=== PATIENT | female | born 1975 | race African-American/Black ===

== ENCOUNTER 2017-12-25 17:12 | Emergency (ER) | payer OTHER ==
[~2017-12-25] VITALS: Ht 157.5 cm; Wt 113.4 kg
[~2017-12-25 17:12] MED LIST: CARAFATE; CIPRO500 MG/5 M PO; FIBER; FLAGYL500 MG PO; NORCO 10MG-325MG1 EA PO; NORVASC5 MG PO; PANTOPRAZOLE SO40 MG PO; PHENERGAN; PROBIOTIC; Z.0.NORCO 10-325 T1 PO
[2017-12-25] MEDS ORDERED: DEXAMETHASONE SOD PHOS 10 MG/1 ML VIAL INJ ONE (18:15)
[2017-12-25] MEDS ORDERED: BUPIVACAINE HCL 0.25% 10ML MPF VIAL INJ ONE (18:15)
[2017-12-25 18:20] VITALS: BP 122/92
== END 2017-12-25 18:20 | disposition home or self-care (01) ==
LOC: FSED 17:12
DX: R07.89 Other chest pain (principal); M25.512 Pain in left shoulder; S29.012A Strain of muscle and tendon of back wall of thorax, initial encounter; I10 Essential (primary) hypertension; Z87.19 Personal history of other diseases of the digestive system
CPT/HCPCS: 99282; J1100

== ENCOUNTER 2024-12-29 04:13 | Emergency (ER) | payer OTHER ==
[~2024-12-29] VITALS: Ht 157.5 cm; Wt 102.1 kg
[2024-12-29 04:15] VITALS: TEMP 98.2
[2024-12-29] MEDS: SODIUM CHLORIDE 0.9% 1000ML 1,000 ML IV ONE (04:59)
[2024-12-29] MEDS: HALOPERIDOL LACTATE 5 MG/ML VIAL IV ONE (05:00)
[2024-12-29 05:07] LABS: BASOPHILS % 0.4 % (0.0-1.0); EOSINOPHILS % 0.1 % (0.0-6.0); LYMPHOCYTES % 26.9 % (18.0-39.1); MONOCYTES % 10.7 % (4.4-11.3); NEUTROPHILS % 61.5 % (38.7-80.0); RED CELL DISTRIBUTION WIDTH 15.8 % (11.7-14.4)
[2024-12-29 05:15] VITALS: PULSE 77; RESP 18; O2SAT 98
[2024-12-29] MEDS: ONDANSETRON HCL INJ 2MG/ML 2ML 2 MG/ML VIAL IV STA (05:21)
[2024-12-29] MEDS: KETOROLAC TROMETHAMINE 30 MG/ML VIAL IV STA (05:22)
[2024-12-29 05:23] LABS: EST GLOMERULAR FILTRATION RATE 72.0 ML/MIN (>=60)
== END 2024-12-29 05:30 | disposition left against medical advice (07) ==
LOC: ER 04:34
DX: R10.10 Upper abdominal pain, unspecified (principal); R11.2 Nausea with vomiting, unspecified; Z76.5 Malingerer [conscious simulation]; I10 Essential (primary) hypertension; R94.31 Abnormal electrocardiogram [ECG] [EKG]; Z87.19 Personal history of other diseases of the digestive system
CPT/HCPCS: 36415; 80053; 83690; 84484; 84702; 85025; 93005; 99284; J1630; J1885; J2405; J2470; J7030